=== PATIENT | female | born 1935 | race Caucasian/White ===

== ENCOUNTER 2018-01-06 12:36 | Inpatient (IN) | payer MEDICARE, BC ==
[~2018-01-06] VITALS: Ht 154.9 cm; Wt 51.7 kg
--- NOTE | 2018-01-06 12:45 | NUR ---
[facility] PRIVATE EMS FROM [facility], C/O INCREASED PARANOIA AND AGGRESSIVE X 2 DAYS. A/OX 2, BREATHING EVEN AND UNLABORED. NO SOB, NAD, VITALS STABLE. SAFETY AND COMFORT MEASURES IN PLACE. AWAITING MD ORDERS.
[2018-01-06 12:52] LABS: BASOPHILS % (AUTO) 0.3 % (0.0-2.0); EOSINOPHILS % (AUTO) 0.7 % (0.0-6.0); HEMATOCRIT 38 % (33-45); HEMOGLOBIN 12.8 g/dL (11.5-14.8); LYMPHOCYTES # (AUTO) 0.7 /CMM (0.8-4.8); LYMPHOCYTES % (AUTO) 7.3 % (20.0-44.0); MEAN CORPUSCULAR HGB CONC 34 g/dl (31.0-36.0); MEAN CORPUSCULAR VOLUME 94 fL (82-100); MONOCYTES # (AUTO) 0.7 /CMM (0.1-1.30); MONOCYTES % (AUTO) 7.6 % (2.0-12.0); NEUTROPHILS # (AUTO) 7.8 /CMM (1.8-8.9); NEUTROPHILS % (AUTO) 84.1 % (43.0-81.0); PLATELET COUNT (AUTO) 235 /CMM (150-450); RDW COEFFICIENT OF VARIATION 11.9 (11.5-15.0); RED BLOOD CELL COUNT(AUTO) 4.06 MIL/uL (4.0-5.2); WHITE BLOOD COUNT (AUTO) 9.3 K/uL (4.3-11.0)
[2018-01-06 13:05] LABS: ALANINE AMINOTRANSFERASE 47 U/L (12-78); ALBUMIN 3.7 g/dL (3.4-5.0); ALCOHOL, BLOOD < 3 mg/dL (0-0); ALKALINE PHOSPHATASE 75 U/L (46-116); ASPARTATE AMINOTRANSFERASE 28 U/L (15-37); BILIRUBIN,DIRECT 0.1 mg/dL (0.0-0.2); BILIRUBIN,TOTAL 0.6 mg/dL (0.2-1.0); CALCIUM, SERUM 9.3 mg/dL (8.5-10.1); CHLORIDE 91 mmol/L (98-107); CREATININE 0.7 mg/dL (0.6-1.3); POTASSIUM 4.8 mmol/L (3.5-5.1); SODIUM SERUM 129 mmol/L (136-145); TOTAL PROTEIN, SERUM 6.7 g/dL (6.4-8.2); UREA NITROGEN, BLOOD 21 mg/dL (7-18)
--- NOTE | 2018-01-06 13:05 | NUR ---
PATIENT TAKEN TO CT VIA STRETCHER.
[2018-01-06 13:14] LABS: CARBON DIOXIDE 42 mmol/L (21-32)
[2018-01-06 13:15] LABS: GLUCOSE 495 mg/dL (74-106); SALICYLATE 0.8 mg/dL (2.8-20.0)
[2018-01-06 13:16] LABS: ACETAMINOPHEN 0 ug/ml (10-30)
--- NOTE | 2018-01-06 13:20 | NUR ---
PATIENT RETURNED FROM CT IN STABLE CONDITION.
--- NOTE | 2018-01-06 13:42 | NUR ---
CALLED NURSING SUP. FOR MS BED
[2018-01-06 14:05] LABS: CALCIUM, SERUM 9.3 mg/dL (8.5-10.1); CHLORIDE 92 mmol/L (98-107); CREATININE 0.8 mg/dL (0.6-1.3); POTASSIUM 4.6 mmol/L (3.5-5.1); SODIUM SERUM 132 mmol/L (136-145); UREA NITROGEN, BLOOD 21 mg/dL (7-18)
[2018-01-06 14:08] LABS: CARBON DIOXIDE 44 mmol/L (21-32)
[2018-01-06 14:09] LABS: GLUCOSE 442 mg/dL (74-106)
[2018-01-06] MEDS ORDERED: INSULIN REGULAR, HUMAN 100 UNIT/ML 10 ML VIAL ONE (14:11)
[2018-01-06 14:19] LABS: ABG BASE EXCESS 8.2 mmol/L; ABG OXYGEN SATURATION 95.7 % (92.0-98.5); ABG PCO2 67.1 mmHg (35.0-45.0); ABG PO2 88.6 mmHg (75.0-100.0); AaDO2 97.5 mmHg; COHb 0.5 % (0.5-1.5); MetHb 0.6 % (0.0-1.5); O2Hb 94.6 % (94.0-97.0); SITE, ABG Left Brachial; VENT MODE, BG NASAL CANNULA
[2018-01-06] MEDS ORDERED: DOCU100C36 PO (14:20)
[2018-01-06] MEDS ORDERED: OLAN2.5T3 PO ×2 (14:20)
[2018-01-06] MEDS ORDERED: ACET325T53 PO (14:20)
[2018-01-06] MEDS ORDERED: BLOO-668 SQ (14:20)
[2018-01-06] MEDS ORDERED: LORA-259 PO (14:20)
[2018-01-06] MEDS ORDERED: IPRA3AMP23 IH (14:20)
[2018-01-06] MEDS ORDERED: INSU100V27 SQ (14:20)
[2018-01-06] MEDS ORDERED: INSU100V7 SQ (14:20)
[2018-01-06] MEDS ORDERED: INSULIN REGULAR, HUMAN 100 UNIT/ML 10 ML VIAL SQ ONE (14:30)
--- NOTE | 2018-01-06 14:42 | NUR ---
CALLED ART FOR PSYCH EVAL
[2018-01-06] MEDS ORDERED: IV NS 0.9% 1,000 ML BAG IV ONE ×2 (15:00→15:30)
[2018-01-06] MEDS ORDERED: FUROSEMIDE 40 MG/4 ML VIAL IV ONE (15:00)
--- NOTE | 2018-01-06 15:05 | NUR ---
TELE 117-1 FOR UNCONTROLLED DIABETES AND HYPOXIA, ADMITTING
[2018-01-06] MEDS ORDERED: FUROSEMIDE 40 MG/4 ML VIAL ONE (15:12)
[2018-01-06] MEDS ORDERED: IPRATROPIUM NEB FS 0.5 MG/2.5 ML AMPUL.NEB NEB ONE (15:30)
[2018-01-06] MEDS ORDERED: ALBUTEROL FS 2.5 MG/0.5 ML VIAL.NEB NEB ONE (15:30)
--- NOTE | 2018-01-06 15:38 | NUR ---
REPORT GIVEN TO PIA GARLAND FOR MILIND UPON ADMISSION
[2018-01-06] MEDS ORDERED: IPRATROPIUM NEB FS 0.5 MG/2.5 ML AMPUL.NEB ONE (15:39)
[2018-01-06] MEDS ORDERED: ALBUTEROL FS 2.5 MG/3 ML VIAL.NEB ONE (15:39)
[2018-01-06] MEDS ORDERED: LORAZEPAM 1 MG TABLET PO PRN (16:00)
[2018-01-06] MEDS ORDERED: MAG HYDROX/AL HYDROX/SIMETH 30 ML UDC PO PRN (16:00)
[2018-01-06] MEDS ORDERED: OLANZAPINE 2.5 MG TABLET PO PRN (16:00)
[2018-01-06] MEDS ORDERED: Medication Not On Formulary EA (Ipratropium/Albuterol Sulfate (Duoneb 2.5-0.5 Mg/3 Ml So IH PRN (16:00)
[2018-01-06] MEDS ORDERED: HYDROCODONE/APAP 5/325MG 1 EACH TABLET PO PRN (16:00)
[2018-01-06] MEDS ORDERED: ONDANSETRON HCL/PF 4 MG/2 ML VIAL IVP PRN (16:00)
[2018-01-06] MEDS ORDERED: Z GUARD REMEDY 2 OZ OINT TP PRN (16:00)
[2018-01-06] MEDS ORDERED: ZOLPIDEM TARTRATE 5 MG TABLET PO PRN (16:00)
[2018-01-06] MEDS ORDERED: *INSULIN REGULAR(HUMULIN R)HUM 100 UNIT/ML VIAL SQ PRN ×2 (16:00)
[2018-01-06] MEDS ORDERED: ACETAMINOPHEN 325 MG TABLET PO PRN ×3 (16:00)
[2018-01-06] MEDS ORDERED: INSULIN REGULAR, HUMAN 100 UNIT/ML 3 ML VIAL SQ PRN (16:00)
[2018-01-06] MEDS ORDERED: DEXTROSE 50%-WATER 50 ML DISP.SYRIN IV PRN ×2 (16:00)
[2018-01-06] MEDS ORDERED: MAGNESIUM HYDROXIDE 30 ML UDC PO PRN (16:00)
[2018-01-06] MEDS ORDERED: DOCUSATE SODIUM 100 MG CAPSULE PO PRN (16:00)
--- NOTE | 2018-01-06 16:20 | NUR ---
PATIENT TRANSPORTED TO [facility] VIA ACLS PROTOCOL. RNPIA TO PROVIDE MILIND.
[2018-01-06] MEDS: IPRATROPIUM NEB FS 0.5 MG/2.5 ML AMPUL.NEB NEB SCH ×3 (16:30→22:49)
[2018-01-06] MEDS: ALBUTEROL FS 2.5 MG/0.5 ML VIAL.NEB NEB SCH ×3 (16:30→22:49)
[2018-01-06 16:36] VITALS: BP 144/75
[2018-01-06 16:40] VITALS: BP 149/75
[2018-01-06] MEDS ORDERED: BLOOD SUGAR DIAGNOSTIC 1 EACH STRIP IN SCH (17:30)
[2018-01-06] MEDS ORDERED: BLOOD SUGAR DIAGNOSTIC 1 EACH STRIP MC SCH (17:30)
[2018-01-06] MEDS: BLOOD SUGAR DIAGNOSTIC 1 EACH STRIP IN SCH ×2 (17:42→21:17)
[2018-01-06] MEDS: IV NS 0.9% 1,000 ML IV PRN (17:42)
--- NOTE | 2018-01-06 19:20 | NUR ---
FINANCIAL SERVICE PROFESSIONAL NOTE RECEIVED PATIENT RESTING COMFORTABLY IN BED, AOX3, SPEECH CLEAR, DENIES PAIN, ON TELE MONITOR SR, DIAPER IN PLACE, LAC #20G PATENT FLUSHING WELL, SITE CDI, NS AT 75ML/HR TOLERATING WELL. NO S/SX OF HYPER/HYPOGLYCEMIA, SAFETY MAINTAINED AT ALL TIMES, BED IN LOW LOCKED POSITION, CALL LIGHT WITHIN REACH, WILL CONTINUE TO MONITOR FOR ANY CHANGES IN CONDITION.
[2018-01-06 20:00] VITALS: BP 118/55
[2018-01-06 20:45] VITALS: BP 118/55
[2018-01-06] MEDS: INSULIN REGULAR, HUMAN 100 UNIT/ML 3 ML VIAL SQ PRN (21:23)
[2018-01-06] MEDS ORDERED: OLANZAPINE 2.5 MG TABLET PO SCH (22:00)
--- NOTE | 2018-01-06 23:41 | NUR ---
PUBLICATION EDITOR NOTE EXTENSIVE TEACHINGS ON MEDICATION ZYPREXA AND ITS USE/ BENEFITS, PATIENT CONTINUES TO REFUSE TO TAKE MEDICATION.
[2018-01-07] VITALS: BP 115/47
--- NOTE | 2018-01-07 02:30 | NUR ---
CARPENTER ROUGH NOTE PATIENT AGREED TO TAKE ZYPREXA TABLET ORDERED
[2018-01-07] MEDS: ALBUTEROL FS 2.5 MG/0.5 ML VIAL.NEB NEB SCH ×6 (03:27→23:30)
[2018-01-07] MEDS: IPRATROPIUM NEB FS 0.5 MG/2.5 ML AMPUL.NEB NEB SCH ×6 (03:27→23:30)
[2018-01-07 04:00] VITALS: BP 104/98
[2018-01-07] MEDS: IV NS 0.9% 1,000 ML IV PRN ×2 (05:32→19:08)
--- NOTE | 2018-01-07 07:00 | NUR ---
CLEARANCE CUTTER OPENING NOTE RECEIVED PATIENT RESTING COMFORTABLY IN BED, AOX3, SPEECH CLEAR, DENIES PAIN, ON TELE MONITOR SR 92, IV LAC #20G PATENT FLUSHING WELL, SITE CDI, NS AT 75ML/HR TOLERATING WELL. SAFETY MAINTAINED, BED IN LOW LOCKED POSITION, CALL LIGHT WITHIN REACH,SRX3. WILL CONTINUE TO MONITOR.
[2018-01-07] MEDS: BLOOD SUGAR DIAGNOSTIC 1 EACH STRIP IN SCH ×4 (07:26→21:50)
[2018-01-07] MEDS: INSULIN REGULAR, HUMAN 100 UNIT/ML 3 ML VIAL SQ PRN ×2 (07:37→11:48)
[2018-01-07 08:00] VITALS: BP 140/72
--- NOTE | 2018-01-07 09:00 | NUR ---
CNC MILLING MACHINIST NOTES SEEN BY WITH PLAN TO TRANSFER TO PSYCH UNIT, AFTER THE PSYCH CONSULT IF ITS OK WITH PSYCHIATRIST.
[2018-01-07 09:50] LABS: BASOPHILS % (AUTO) 0.2 % (0.0-2.0); EOSINOPHILS % (AUTO) 2.7 % (0.0-6.0); HEMATOCRIT 37 % (33-45); HEMOGLOBIN 12.3 g/dL (11.5-14.8); LYMPHOCYTES # (AUTO) 1.2 /CMM (0.8-4.8); MEAN CORPUSCULAR HGB CONC 34 g/dl (31.0-36.0); MEAN CORPUSCULAR VOLUME 95 fL (82-100); MONOCYTES # (AUTO) 0.6 /CMM (0.1-1.30); MONOCYTES % (AUTO) 7.9 % (2.0-12.0); NEUTROPHILS # (AUTO) 5.6 /CMM (1.8-8.9); NEUTROPHILS % (AUTO) 73.2 % (43.0-81.0); PLATELET COUNT (AUTO) 235 /CMM (150-450); RDW COEFFICIENT OF VARIATION 13.3 (11.5-15.0); RED BLOOD CELL COUNT(AUTO) 3.89 MIL/uL (4.0-5.2); WHITE BLOOD COUNT (AUTO) 7.6 K/uL (4.3-11.0)
[2018-01-07] MEDS: INSULIN GLARGINE, 100 UNIT/ML CARTRIDGE SQ SCH (10:00)
--- NOTE | 2018-01-07 10:00 | NUR ---
PROCESSING ASSOCIATE NOTES PATIENT REQUESTED TO HAVE SOCIAL SERVICE.ASKED ABUT HER CONCERN ,SHE WANT TO TALK TO ONLY SOCIAL SERVICE.SSD MADE AWARE.
[2018-01-07 10:15] LABS: ALANINE AMINOTRANSFERASE 44 U/L (12-78); ALBUMIN 3.4 g/dL (3.4-5.0); ALKALINE PHOSPHATASE 63 U/L (46-116); ASPARTATE AMINOTRANSFERASE 26 U/L (15-37); BILIRUBIN,TOTAL 0.4 mg/dL (0.2-1.0); CALCIUM, SERUM 8.7 mg/dL (8.5-10.1); CARBON DIOXIDE 38 mmol/L (21-32); CHLORIDE 97 mmol/L (98-107); CREATININE 0.6 mg/dL (0.6-1.3); GLUCOSE 215 mg/dL (74-106); MAGNESIUM 1.9 mg/dL (1.8-2.4); PHOSPHORUS 3.7 mg/dL (2.5-4.9); POTASSIUM 3.3 mmol/L (3.5-5.1); SODIUM SERUM 136 mmol/L (136-145); TOTAL PROTEIN, SERUM 6.1 g/dL (6.4-8.2); UREA NITROGEN, BLOOD 12 mg/dL (7-18)
[2018-01-07 10:50] LABS: CHOLESTEROL 133 mg/dL (<200); HDL CHOLESTEROL 49 mg/dL (40-60); LDL 71 mg/dL (0-99); THYROID STIMULATING HORMONE 2.231 uIU/mL (0.358-3.74); TRIGLYCERIDES 44 mg/dL (30-150)
--- NOTE | 2018-01-07 11:30 | NUR ---
PIGMENT GRINDER NOTES PATIENT IS ALERT ORIENTED WITH PERIODS OF CONFUSION,REPEATEDLY ASKING QUESTIONS THAT EXPLAINED PRIOR.SOCIAL SERVICE MET THE PATIENT ,SHE HAS CONCERN ABOUT HER CLOCK,REMOVE ONE ID BAND.TO KNOW WHO IS HER PRIMARY DOCTOR ANSWERED ALL THE QUESTIONS,ALL NEEDS MET.CONTINUE TO MONITOR
[2018-01-07 11:35] LABS: EOSINOPHILS % (MANUAL) 3 % (0-4); LYMPHOCYTES % (MANUAL) 16 % (16-48); MONOCYTES % (MANUAL) 9 % (0-11.0); NEUTROPHILS % (MANUAL) 72 (42-76)
--- NOTE | 2018-01-07 11:38 | NUR ---
HAULAGE ENGINE OPERATOR NOTES NOTED WITH BLOOD PRESSURE OF 158/92.DENIED CHEST PAIN. MADE AWARE.GOT NEW ORDER.ASKED ABOUT DVT PROPHYLAXIS.STARTED ON LOVENOX 30MG DAILY.
[2018-01-07] MEDS: ENOXAPARIN SODIUM 30 MG/0.3 ML DISP.SYRIN SQ SCH ×3 (11:46→20:56)
[2018-01-07] MEDS: AMLODIPINE BESYLATE 5 MG TABLET PO SCH (11:48)
[2018-01-07 12:00] VITALS: BP 158/72
--- NOTE | 2018-01-07 12:03 | NUR ---
JAVA ENTERPRISE ARCHITECT NOTES PATIENT REFUSED MEDICATION LOVENOX.EXPLAINED THE RISK AND BENEFIT.WILL FOLLOW UP.
--- NOTE | 2018-01-07 13:00 | NUR ---
RN NOTES PATIENT REFUSED LOVENOX.EXPLAINED RISK AND BENEFITS OFFERED X3
--- NOTE | 2018-01-07 13:20 | NUR ---
COMPUTER HELP DESK REPRESENTATIVE NOTES GOT CALL FROM [facility] THAT PATIENT COMPLAINTS OF THE MEDICATION GIVEN FOR BLOOD PRESSURE MEDICATION IS BURNED HER THROAT AND BREATHING TREATMENT BURNING .SHE C/O SOB.MADE AWARE THAT I WAS WITH THE PATIENT WHILE SHE IS THE PHONE AND AFTER GIVING MEDICATION,SHE IS COMFORTABLE.NO SOB NOTICED.WILL FOLLOW UP WITH THE DOCTOR FOR MEDICATION CHANGE IF ANY SIGNS AND SYMPTOMS OF ALLERGY NOTED.WENT TO THE PATIENT ROOM SHE IS LITTLE ANXIOUS AND OFFERED ANXIETY MEDICATION,SHE SAID SHE IS FINE.REFUSED PRN ATIVAN. CHECKED THE O2 SATURATION IS 92% WITH 2L OXYGEN.NO SOB NO DISTRESS NOTED.DENIED THE PAIN AND DISCOMFORT.CONTINUE TO MONITOR.CHARGE NURSE MADE AWARE.
[2018-01-07 16:00] VITALS: BP 120/52
--- NOTE | 2018-01-07 16:05 | NUR ---
IN STORE MARKETER NOTES NOTED WITH DISTENDED ABDOMEN.ABDOMEN IS BLOATED.OFFERED MAALOX BUT REFUSED TO TAKE IT. MADE AWARE.GOT NEW ORDER FOR KUB.
[2018-01-07] MEDS ORDERED: POTASSIUM CHLORIDE 20 MEQ TAB.PRT.SR PO SCH (16:30)
--- NOTE | 2018-01-07 16:59 | NUR ---
OCCUPATIONAL THERAPY SUPERVISOR NOTES PATIENT REFUSED POTASSIUM.EXPLAINED RISK AND BENEFITS.SHE WANT TO SEE THE LABS.LABS SEEN BY THE RESIDENT.STILL DON'T WANT TO TAKE MEDICATION.WILL OFFER LATER.
--- NOTE | 2018-01-07 19:00 | NUR ---
HVAC SHEET METAL INSTALLER SHIFT END NOTE PATIENT RESTING COMFORTABLY IN BED, AOX3,WITH PERIODS OF CONFUSION, SPEECH CLEAR, DENIES PAIN, ON TELE MONITOR SR 92, IV LAC #20G PATENT FLUSHING WELL, SITE CDI, NS AT 75ML/HR TOLERATING WELL. NO SOB NON DISTRESS NOTICED DURING THE SHIFT.SAFETY MAINTAINED, BED IN LOW LOCKED POSITION, CALL LIGHT WITHIN REACH,SRX3. WILL ENDORSE TO PM NURSE FOR MILIND.
[2018-01-07 20:00] VITALS: BP 136/62
[2018-01-07] MEDS: ARIPIPRAZOLE 5 MG TABLET PO SCH ×3 (21:50→22:30)
--- NOTE | 2018-01-07 22:02 | NUR ---
TRAIN STARTER NOTES PT REFUSED ABILIFY. EXPLAINED TO PT IMPORTANCE OF HER MEDICATIONS IN HER POC BUT PT STILL REFUSED. PT WANTS TO TALK TO MD FIRST. WILL CONTINUE TO MONITOR.
--- NOTE | 2018-01-07 22:30 | NUR ---
ENVELOPE FOLD OPERATOR NOTES PT DECIDED TO TAKE HER ABILIFY FOR TONIGHT. WILL CONTINUE TO MONITOR.
[2018-01-08] VITALS: BP 157/73
[2018-01-08] MEDS: IPRATROPIUM NEB FS 0.5 MG/2.5 ML AMPUL.NEB NEB SCH ×4 (03:30→11:11)
[2018-01-08] MEDS: ALBUTEROL FS 2.5 MG/0.5 ML VIAL.NEB NEB SCH ×4 (03:30→11:11)
[2018-01-08 04:00] VITALS: BP 130/70
[2018-01-08 04:31] VITALS: BP 130/70
--- NOTE | 2018-01-08 06:30 | NUR ---
CLAIM CLINICIAN NOTES AWAKE & RESPONSIVE. NOT IN ANY DISTRESS. NO SOB NOTED. DENIES ANY PAIN OR DISCOMFORT AT THIS TIME. ON TELE SR @ 79 WITH IV-HL PATENT & INTACT. AM CARE DONE. MONITORED ACCORDINGLY. CALL LIGHT WITHIN REACH. BED IN LOWEST POSITION. SR UP X 2 FOR SAFETY. WILL ENDORSE TO NEXT SHIFT.
--- NOTE | 2018-01-08 07:00 | NUR ---
TELE OPENING NOTE PATIENT RESTING COMFORTABLY IN BED, AOX3,WITH PERIODS OF CONFUSION, SPEECH CLEAR, DENIES PAIN, ON TELE MONITOR SIN[place] OF 103, IV LAC #20G PATENT FLUSHING WELL, SITE CDI, NS AT 75ML/HR TOLERATING WELL. NO SOB NON DISTRESS NOTICED DURING THE SHIFT.SAFETY MAINTAINED, BED IN LOW LOCKED POSITION, CALL LIGHT WITHIN REACH,SRX3. WILL CONTINUE TO MONITOR.
[2018-01-08 07:07] LABS: CALCIUM, SERUM 8.5 mg/dL (8.5-10.1); CHLORIDE 100 mmol/L (98-107); CREATININE 0.3 mg/dL (0.6-1.3); POTASSIUM 4.1 mmol/L (3.5-5.1); SODIUM SERUM 142 mmol/L (136-145); UREA NITROGEN, BLOOD 11 mg/dL (7-18)
[2018-01-08 07:20] LABS: CARBON DIOXIDE 41 mmol/L (21-32)
[2018-01-08] MEDS: BLOOD SUGAR DIAGNOSTIC 1 EACH STRIP IN SCH ×2 (07:30→12:19)
[2018-01-08 07:31] LABS: GLUCOSE 62 mg/dL (74-106)
--- NOTE | 2018-01-08 07:40 | NUR ---
OUTSOLE ROUNDER NOTES BLOOD SUGAR IS 63,ORANGE JUICE GIVEN AND PATIENT EATING THE BREAKFAST.NO SYMPTOMS NOTED.CONTINUE TO MONITOR
[2018-01-08 08:00] VITALS: BP 143/64
[2018-01-08] MEDS: INSULIN GLARGINE, 100 UNIT/ML CARTRIDGE SQ SCH (09:00)
[2018-01-08] MEDS: AMLODIPINE BESYLATE 5 MG TABLET PO SCH (09:00)
[2018-01-08] MEDS: ENOXAPARIN SODIUM 30 MG/0.3 ML DISP.SYRIN SQ SCH (09:00)
[2018-01-08] MEDS: IV NS 0.9% 1,000 ML IV PRN (09:45)
--- NOTE | 2018-01-08 10:00 | NUR ---
RN NOTES SEEN BY MADE AWARE ABOUT THE -PATIENT CONCERN.SHE WANT TO DISCONTINUE AMLODIPINE AND TO START ON LASIX.STARTED ON LASIX.D/C AMLODIPINE.C/O BURNING SENSATION UPON URINATION.WAITING FOR URINE CULTURE.CALL MADE TO SON PER REQUEST,LEFT MESSAGE.NOTIFIED ABOUT ABNORMAL LAB OF CO2,SHE IS CHRONIC COPD PATIENT.MADE AWARE ABOUT LOW BLOOD SUGAR OF 63.CHANGED LANTUS FROM 10 UNIT TO 8 UNIT.NOTIFIED ABOUT THE REQUEST FOR NEXIUM PER DOCTOR SHE DON'T NEED IT.GOT ORDER FOR PT EVAL .POSSIBLE DISCHARGE TO [facility].
[2018-01-08 10:22] LABS: APPEARANCE,URINE SL CLOUDY (CLEAR); BILIRUBIN,URINE NEGATIVE (NEGATIVE); BLOOD, URINE TRACE Ery/uL (NEGATIVE); COLOR,URINE YELLOW (YELLOW); KETONES,URINE NEGATIVE (NEGATIVE); LEUKOCYTE ESTERASE ,URINE 3+ (NEGATIVE); NITRITE, URINE NEGATIVE (NEGATIVE); PROTEIN,URINE NEGATIVE (NEGATIVE); UGLUCOSE NEGATIVE (NEGATIVE); UROBILINOGEN,URINE 0.2 EU/dL (0.2)
[2018-01-08 10:31] LABS: BACTERIA,URINE Few /HPF (None Seen); SQUAMOUS EPITHELIAL CELL,UR Few /HPF (None Seen)
[2018-01-08] MEDS: INSULIN REGULAR, HUMAN 100 UNIT/ML 3 ML VIAL SQ PRN (12:18)
--- NOTE | 2018-01-08 13:00 | NUR ---
RN NOTES SEEN BY CRISIS TEAM.PATIENT IS ON HOLD FOR 72 HRS.
--- NOTE | 2018-01-08 13:15 | NUR ---
RN NOTES GOT DISCHARGE ORDER,REPORT GIVEN TO CARLYN GARLAND IN [facility].INFORMED THAT PATIENT IS ON HOLD FOR 72 HRS STARTS FROM TODAY.ON 2L O2 CONTINUOUS.
--- NOTE | 2018-01-08 14:45 | NUR ---
TRANSFER NOTE PATIENT GOT TRANSFERRED TO [facility] IN STABLE CONDITION.NO SOB NO DISTRESS NOTED.ON O2 VIA NA.ALL BELONGINGS TAKEN .PATIENT REFUSED TO SIGN BELONGING LIST AND TO TAKE PICTURE. REPORT GIVEN MARIELLE ALCOCER RN.
[2018-01-08] MEDS ORDERED: MAGN400O6 PO (15:14)
[2018-01-08] MEDS ORDERED: ZOLP5TAB8 PO (15:14)
[2018-01-08] MEDS ORDERED: AMLO5TAB7 PO (15:14)
[2018-01-08] MEDS ORDERED: MAG30ORA PO (15:14)
[2018-01-08] MEDS ORDERED: HYDR-552 PO (15:14)
[2018-01-08] MEDS ORDERED: ENOX30DI SQ (15:14)
[2018-01-08] MEDS ORDERED: INSU100V3 SQ (15:14)
[2018-01-08] MEDS ORDERED: ALLA266C2 TP (15:14)
[2018-01-08] MEDS ORDERED: ARIP5TAB10 PO (15:14)
[2018-01-08] MEDS ORDERED: ARIPIPRAZOLE 5 MG TABLET PO SCH (22:00)
[2018-01-09] MEDS ORDERED: FUROSEMIDE 40 MG TABLET PO SCH (09:00)
[2018-01-09] MEDS ORDERED: INSULIN GLARGINE, 100 UNIT/ML CARTRIDGE SQ SCH (09:00)
== END 2018-01-08 14:31 | DRG 189 ==
LOC: ER 12:50 → TELE1 15:33 → MEDSG1 01-08 10:04
PROVIDERS: ADMIT Internal Medicine; ATTEND Internal Medicine
DX: J96.21 Acute and chronic respiratory failure with hypoxia (principal); G93.41 Metabolic encephalopathy; E87.3 Alkalosis; E11.65 Type 2 diabetes mellitus with hyperglycemia; I11.0 Hypertensive heart disease with heart failure; I50.9 Heart failure, unspecified; F29 Unspecified psychosis not due to a substance or known physiological condition; F41.9 Anxiety disorder, unspecified; Z88.5 Allergy status to narcotic agent; Z88.2 Allergy status to sulfonamides; Z88.8 Allergy status to other drugs, medicaments and biological substances; Z79.4 Long term (current) use of insulin; Z79.899 Other long term (current) drug therapy; I25.10 Atherosclerotic heart disease of native coronary artery without angina pectoris; F25.0 Schizoaffective disorder, bipolar type; J44.9 Chronic obstructive pulmonary disease, unspecified
CPT/HCPCS: 36415; 36600; 70450-TC; 71045-TC; 74018; 80048-TC; 80053-TC; 80061-TC; 80076-TC; 80305; 81000-TC; 82962-TC; 83690-TC; 83735-TC; 83880; 84100-TC; 84443-TC; 84484-TC; 85025-TC; 87081-TC; 87086-TC; 87186-TC; A4606; G0480; J1650; J1815; J1940; J7030; Z7610

== ENCOUNTER 2018-01-08 15:00 | Inpatient (IN) | payer MEDICARE ==
[~2018-01-08] VITALS: Ht 160 cm; Wt 40.8 kg
[~2018-01-08 15:00] MED LIST: ACET325T53 PO; BLOO-668 SQ; DOCU100C36 PO; INSU100V27 SQ; INSU100V7 SQ; IPRA3AMP23 IH; LORA-259 PO; OLAN2.5T3 PO
[2018-01-08] MEDS ORDERED: ARIP5TAB10 PO (15:14)
[2018-01-08] MEDS ORDERED: AMLO5TAB7 PO (15:14)
[2018-01-08] MEDS ORDERED: MAG30ORA PO (15:14)
[2018-01-08] MEDS ORDERED: ZOLP5TAB8 PO (15:14)
[2018-01-08] MEDS ORDERED: INSU100V3 SQ (15:14)
[2018-01-08] MEDS ORDERED: ENOX30DI SQ (15:14)
[2018-01-08] MEDS ORDERED: MAGN400O6 PO (15:14)
[2018-01-08] MEDS ORDERED: HYDR-552 PO (15:14)
[2018-01-08] MEDS ORDERED: ALLA266C2 TP (15:14)
[2018-01-08] MEDS ORDERED: MAG HYDROX/AL HYDROX/SIMETH 30 ML UDC PO PRN (15:30)
[2018-01-08] MEDS ORDERED: MAGNESIUM HYDROXIDE 30 ML UDC PO PRN (15:30)
[2018-01-08] MEDS ORDERED: ACETAMINOPHEN 325 MG TABLET PO PRN (15:30)
[2018-01-08 15:45] VITALS: BP 150/74
[2018-01-08] MEDS ORDERED: Z GUARD REMEDY 2 OZ OINT TP PRN ×2 (16:00→17:30)
--- NOTE | 2018-01-08 17:11 | NUR ---
ADMITTED AN 82 YEARS OLD FEMALE ON 5150 FOR GD. PT. WAS AGITATED, NON COMPLIANT, IMPAIRED JUDGEMENT, POOR INSIGHT, PARANOID, SUSPICIOUS AND DEPRESSED. PT. CAME FROM [facility] AND ARRIVED IN THE UNIT VIA A WHEELCHAIR AND WHEELED BY [facility] STAFFS. PT. IS WITH POOR HYGIENE, ALERT/ ORIENTED X3 AND WITH OXYGEN AT 2/ MIN. V/S TAKEN, CONTRABAND DONE AND SKIN CHECK AND SKIN PICTURES TAKEN, MRSA TAKEN AND PT. REFUSED FOR SIGNING THE ADMISSION PAPERS. DR. GRIMES MADE AWARE OF THE ADMISSION AND GAVE ORDERS. FREDO RUBIN NOTIFIED AND WITH ORDERS AND WILL CONTINUE TO MONITOR FOR SAFETY.
[2018-01-08] MEDS ORDERED: HYDROCODONE/APAP 5/325MG 1 EACH TABLET PO PRN (17:30)
[2018-01-08] MEDS ORDERED: DEXTROSE 50%-WATER 50 ML DISP.SYRIN IV PRN (17:30)
[2018-01-08] MEDS ORDERED: DOCUSATE SODIUM 100 MG CAPSULE PO PRN (17:30)
[2018-01-08] MEDS: BLOOD SUGAR DIAGNOSTIC 1 EACH STRIP IN SCH ×2 (17:45→21:18)
[2018-01-08] MEDS: INSULIN REGULAR, HUMAN 100 UNIT/ML 3 ML VIAL SQ PRN (17:48)
[2018-01-08 20:00] VITALS: BP 143/77
[2018-01-08] MEDS: Z GUARD REMEDY 2 OZ OINT TP SCH (21:18)
--- NOTE | 2018-01-08 21:20 | NUR ---
ACCUCHECK, 294 MG/DL, REFUSED INSULIN COVERAGE OF 6 UNITS REGULAR I., OFFERED 3X, STILL REFUSED. PATIENT STATED, " I TOOK DINNER, IF I TAKE THAT, IT WILL BE LOW, NO." OFFERED HS SNACKS, PATIENT ALSO REFUSED.
[2018-01-08] MEDS ORDERED: ARIPIPRAZOLE 2 MG TABLET PO SCH (22:00)
[2018-01-09 07:10] LABS: APPEARANCE,URINE CLEAR (CLEAR); BILIRUBIN,URINE NEGATIVE (NEGATIVE); BLOOD, URINE NEGATIVE Ery/uL (NEGATIVE); COLOR,URINE YELLOW (YELLOW); KETONES,URINE NEGATIVE (NEGATIVE); LEUKOCYTE ESTERASE ,URINE 1+ (NEGATIVE); NITRITE, URINE NEGATIVE (NEGATIVE); PH,URINE 6.5 (5.0-8.0); PROTEIN,URINE NEGATIVE (NEGATIVE); UGLUCOSE TRACE mg/dL (NEGATIVE); UROBILINOGEN,URINE 0.2 EU/dL (0.2)
[2018-01-09 07:15] LABS: BACTERIA,URINE Few /HPF (None Seen); RBC,URINE 0-2 /HPF (0-2)
[2018-01-09 07:16] LABS: SQUAMOUS EPITHELIAL CELL,UR 0-2 /HPF (None Seen)
[2018-01-09] MEDS: BLOOD SUGAR DIAGNOSTIC 1 EACH STRIP IN SCH ×4 (07:56→21:06)
[2018-01-09 08:00] VITALS: BP 147/71
[2018-01-09] MEDS: INSULIN REGULAR, HUMAN 100 UNIT/ML 3 ML VIAL SQ PRN ×2 (08:05→12:28)
[2018-01-09] MEDS: INSULIN GLARGINE, 100 UNIT/ML CARTRIDGE SQ SCH (08:11)
--- NOTE | 2018-01-09 08:12 | NUR ---
GPS/RN PT REFUSED INSULIN GLARGINE. AGREED TO TAKE REGULAR INSULIN 8UNITS SQ. PT IS SUSPICIOUS AND REQUESTED INSULIN TO BE DRAWN IN FRONT OF HER. CHARGE NURSE SAAD GARLAND WAS PRESENT AT THE BEDSIDE AND TRIED TO CONVINCE HER TO TAKE SCHEDULED MEDS WELL.
[2018-01-09] MEDS: Z GUARD REMEDY 2 OZ OINT TP SCH ×2 (09:15→21:06)
[2018-01-09] MEDS: AMLODIPINE BESYLATE 5 MG TABLET PO SCH (09:29)
[2018-01-09] MEDS: ENOXAPARIN SODIUM 30 MG/0.3 ML DISP.SYRIN SQ SCH (09:30)
--- NOTE | 2018-01-09 10:19 | NUR ---
INITIAL ECHO FINDINGS SHOWED EF 68%~ WITH SEVERE PULMONARY HTN 73mmHg. INFORMED NURSE OF RESULTS.
[2018-01-09] MEDS: CEPHALEXIN MONOHYDRATE 500 MG CAPSULE PO SCH ×2 (12:15→21:05)
[2018-01-09 16:08] VITALS: BP 121/66
[2018-01-09] MEDS: DOCUSATE SODIUM 100 MG CAPSULE PO SCH (17:31)
[2018-01-09] MEDS: ARIPIPRAZOLE 2 MG TABLET PO SCH (17:31)
[2018-01-09 20:00] VITALS: BP 140/68
[2018-01-09] MEDS: *INSULIN REGULAR(HUMULIN R)HUM 100 UNIT/ML VIAL SQ PRN (21:10)
--- NOTE | 2018-01-09 21:11 | NUR ---
ACCUCHECK 188 MG/DL, 3 UNITS REGULAR INSULIN SC ADMINISTERED. HAD CRANBERRY JUICE AND EGG SANDWICH FOR SNACKS.
--- NOTE | 2018-01-10 06:50 | NUR ---
PATIENT REFUSED TO BE CLEANED AND CHANGE HER DIAPER, GAS METER INSTALLER REPORTED THAT PATIENT IS WET. PATIENT REQUESTED TO BE CHANGED AFTER BREAKFAST TODAY. CHARGE NURSE MADE AWARE.
[2018-01-10 07:14] LABS: ALANINE AMINOTRANSFERASE 33 U/L (12-78); ALKALINE PHOSPHATASE 65 U/L (46-116); ASPARTATE AMINOTRANSFERASE 26 U/L (15-37); BILIRUBIN,TOTAL 0.5 mg/dL (0.2-1.0); CALCIUM, SERUM 8.8 mg/dL (8.5-10.1); CHLORIDE 96 mmol/L (98-107); CREATININE 0.3 mg/dL (0.6-1.3); GLUCOSE 154 mg/dL (74-106); POTASSIUM 4.3 mmol/L (3.5-5.1); SODIUM SERUM 136 mmol/L (136-145); TOTAL PROTEIN, SERUM 5.9 g/dL (6.4-8.2); UREA NITROGEN, BLOOD 9 mg/dL (7-18)
--- NOTE | 2018-01-10 07:29 | NUR ---
GPS RN NOTES PATIENT RECEIVED RESTING INSIDE ROOM. AWAKE, ALERT AND ORIENTED. VERBALLY RESPONSIVE AND RESPONDS TO VERBAL AND TACTILE STIMULI. BREATHING EVEN AND UNLABORED. O2 AT 2L/MIN VIA NC. NO SOB OR ACUTE DISTRESS NOTED. PATIENT DENIES ANY PAIN OR DISCOMFORT. NO CHANGES IN LOC NOTED. SITTER ON BEDSIDE. WILL CONTINUE TO MONITOR.
[2018-01-10 07:38] LABS: CARBON DIOXIDE 43 mmol/L (21-32)
[2018-01-10] MEDS: BLOOD SUGAR DIAGNOSTIC 1 EACH STRIP IN SCH ×4 (07:40→22:00)
[2018-01-10] MEDS: INSULIN REGULAR, HUMAN 100 UNIT/ML 3 ML VIAL SQ PRN ×2 (07:42→12:17)
[2018-01-10 07:57] LABS: CHOLESTEROL 134 mg/dL (<200); HDL CHOLESTEROL 48 mg/dL (40-60); LDL 76 mg/dL (0-99); TRIGLYCERIDES 71 mg/dL (30-150)
[2018-01-10 08:00] VITALS: BP 164/81
[2018-01-10] MEDS: INSULIN GLARGINE, 100 UNIT/ML CARTRIDGE SQ SCH (09:00)
[2018-01-10] MEDS: CEPHALEXIN MONOHYDRATE 500 MG CAPSULE PO SCH ×2 (09:08→20:45)
[2018-01-10] MEDS: AMLODIPINE BESYLATE 5 MG TABLET PO SCH (09:08)
[2018-01-10] MEDS: DOCUSATE SODIUM 100 MG CAPSULE PO SCH ×2 (09:08→16:31)
[2018-01-10] MEDS: ENOXAPARIN SODIUM 30 MG/0.3 ML DISP.SYRIN SQ SCH (09:10)
[2018-01-10] MEDS: Z GUARD REMEDY 2 OZ OINT TP SCH ×2 (09:10→20:47)
[2018-01-10] MEDS: ARIPIPRAZOLE 2 MG TABLET PO SCH (16:31)
[2018-01-10 20:04] VITALS: BP 149/81
--- NOTE | 2018-01-10 22:00 | NUR ---
PATIENT REFUSED ACCUCHECK, ATTEMPTED 3X, STILL REFUSED, AGITATED, STATED, "LEAVE ME ALONE." CHARGE NURSE MADE AWARE.
[2018-01-11 08:00] VITALS: BP 150/78
[2018-01-11] MEDS: BLOOD SUGAR DIAGNOSTIC 1 EACH STRIP IN SCH ×4 (08:54→22:16)
[2018-01-11] MEDS: DOCUSATE SODIUM 100 MG CAPSULE PO SCH ×2 (08:54→16:37)
[2018-01-11] MEDS: CEPHALEXIN MONOHYDRATE 500 MG CAPSULE PO SCH ×2 (08:54→20:43)
[2018-01-11] MEDS: AMLODIPINE BESYLATE 5 MG TABLET PO SCH (08:55)
[2018-01-11] MEDS: ENOXAPARIN SODIUM 30 MG/0.3 ML DISP.SYRIN SQ SCH (08:56)
[2018-01-11] MEDS: INSULIN REGULAR, HUMAN 100 UNIT/ML 3 ML VIAL SQ PRN ×3 (08:57→17:36)
[2018-01-11] MEDS: INSULIN GLARGINE, 100 UNIT/ML CARTRIDGE SQ SCH (08:57)
--- NOTE | 2018-01-11 08:57 | NUR ---
[id number]: BLOOD SUGAR IS 173 MG/DL AND GAVE 4 UNITS OF REGULAR INSULIN.
[2018-01-11] MEDS: Z GUARD REMEDY 2 OZ OINT TP SCH ×2 (09:13→20:44)
--- NOTE | 2018-01-11 11:16 | NUR ---
ISI-TZ-QMACK: GAVE MILK OF MAGNESIA 30 ML PO UPON PT REQUEST AND WILL CONTINUE TO MONITOR FOR EFFECTIVENESS OF MEDICATION
--- NOTE | 2018-01-11 11:29 | NUR ---
WOUND CARE CONSULT: PT NOT SEEN YET FOR SKIN ASSESSMENT DUE TO PT OFF UNIT AT THIS TIME. PT HAS SACRAL WOUND WITHOUT DRAINAGE PER NURSING DOCUMENTATION, PRESENT ON ADMISSION. RECOMMENDATIONS MADE BASED ON NURSING DOCUMENTATION. ALL SKIN PROTECTION RECOMMENDATIONS DISCUSSED WITH NURSING STAFF. WILL SEE PT PT CONDITION PERMITS. CURRENT LORI SCORE IS 17. PT ON OXYGEN CONTINUOUSLY. MD IN AGREEMENT WITH PLAN OF CARE.
--- NOTE | 2018-01-11 12:47 | NUR ---
CUP-GB-[id number]: BLOOD SUGAR IS 264 MG/DL AND 12 UNITS OF REGULAR INSULIN
--- NOTE | 2018-01-11 15:47 | NUR ---
Initial Discharge Plan: Pts address on face sheet is [address] [place] [address] and telephone # is . However, per Leila, Staff from [facility] pt is residing at their facility for 2 dys. Per Leila she spoke to Uday from [facility] who agreed to accept pt once she is ready to discharge. During assessment, pt reported that she wanted to discharge back home to her once she is stable. SW will follow up to ensure pt is safely and adequately discharged.
[2018-01-11 16:00] VITALS: BP 134/63
[2018-01-11] MEDS: ARIPIPRAZOLE 2 MG TABLET PO SCH (16:37)
[2018-01-11] MEDS ORDERED: BISACODYL SUPP (10 MG) 10 MG/SUPP.RECT SUPP.RECT RC ONE (17:00)
--- NOTE | 2018-01-11 17:36 | NUR ---
UKE-NF-[id number]: BLOOD SUGAR IS 158 MG/DL AND GAVE 2 UNITS OF REGULAR INSULIN
[2018-01-11] MEDS ORDERED: NA PHOS,M-B/NA PHOS,DI-BA 1 EA ENEMA RC ONE (18:00)
[2018-01-11 19:33] VITALS: BP 158/84
--- NOTE | 2018-01-11 20:05 | NUR ---
GPS RN NOTE: Fleet enema administered via rectum and effective with xtra large, brown, form, soft stool. Patient tolerated the procedure, no complication noted at this time. Will continue to monitor h30gumn for safety
[2018-01-11] MEDS: POLYETHYLENE GLYCOL 3350 17 GM POWD.PACK PO SCH (22:00)
--- NOTE | 2018-01-11 22:18 | NUR ---
gps rn note: Patient blood sugar = 251, refused coverage and wants to be checked at 11pm. No s/s of hypoglycemia and hyperglycemia, Will continue to monitor.
[2018-01-11] MEDS: *INSULIN REGULAR(HUMULIN R)HUM 100 UNIT/ML VIAL SQ PRN (23:53)
[2018-01-12] MEDS: BLOOD SUGAR DIAGNOSTIC 1 EACH STRIP IN SCH ×4 (07:30→21:39)
[2018-01-12 08:00] VITALS: BP 158/74
[2018-01-12] MEDS: INSULIN GLARGINE, 100 UNIT/ML CARTRIDGE SQ SCH (09:00)
--- NOTE | 2018-01-12 09:28 | NUR ---
WOUND CARE CONSULT: PT SEEN FOR SKIN ASSESSMENT. PT NOTED TO HAVE STAGE 2 ULCER TO SACRUM WITH SURROUNDING DEEP TISSUE INJURY (INTACT), PRESENT ON ADMISSION. PT IS EXTREMELY THIN AND BONY. RECOMMENDATIONS MADE FOR SKIN PROTECTION AND WOUND CARE. DISCUSSED WITH NURSING STAFF. FIRST STEP MATTRESS ORDERED. WILL SEE PRN. DIETARY CONSULT IN PLACE. PT ON CONTINUOUS OXYGEN. MD IN AGREEMENT WITH PLAN OF CARE. Addendum: 01/12/18 at 0930 by AIDE ROSAS WNDNU Amended: Links added.
[2018-01-12] MEDS ORDERED: HYDROGEL DRESSING 90 GM TUBE TP PRN (09:30)
[2018-01-12] MEDS: CEPHALEXIN MONOHYDRATE 500 MG CAPSULE PO SCH (09:31)
[2018-01-12] MEDS: DOCUSATE SODIUM 100 MG CAPSULE PO SCH ×2 (09:32→17:00)
[2018-01-12] MEDS: AMLODIPINE BESYLATE 5 MG TABLET PO SCH (09:32)
[2018-01-12] MEDS: ENOXAPARIN SODIUM 30 MG/0.3 ML DISP.SYRIN SQ SCH (09:35)
[2018-01-12] MEDS: Z GUARD REMEDY 2 OZ OINT TP SCH ×2 (09:37→21:40)
[2018-01-12] MEDS: HYDROGEL DRESSING 90 GM TUBE TP SCH (10:52)
--- NOTE | 2018-01-12 11:00 | NUR ---
[id number]: NOTIFIED DR. MUSTAFA ABOUT PT'S EKG ON 01/11/18 AND TROPONIN LEVEL ON 01/12/18.
--- NOTE | 2018-01-12 12:00 | NUR ---
APZ-DU-[id number]: NOTIFIED DR. MUSTAFA ABOUT PT REFUSING ACCUCHECK FOR BREAKFAST AND LUNCH. PT REFUSED BLOOD WORK FOR TODAY.
--- NOTE | 2018-01-12 14:00 | NUR ---
IPN-HI-BIPFM: NOTIFIED DR. MUSTAFA ABOUT PT DECREASING O2 SATURATION AND NO NEW ORDERS GIVEN AT THIS TIME
[2018-01-12 16:00] VITALS: BP 125/60
[2018-01-12] MEDS: ARIPIPRAZOLE 2 MG TABLET PO SCH (17:00)
--- NOTE | 2018-01-12 19:27 | NUR ---
GPS RN OPENING NOTES PATIENT OBSERVED SCREAMING AND REFUSE TO HAVE CARE AT THIS TIME, MONITORING AND WITH SITTER DUE TO REQUIRING ASSISTANCE WITH NEEDS AND DESATURATION WHEN PATIENT ATTEMPS TO STAND . NEED CONSTANT OBSERVATION AND ATTENTION FOR SAFETY.
[2018-01-12 20:00] VITALS: BP 173/71
[2018-01-12] MEDS: NITROFURANTOIN/NITROFURAN MAC 100 MG CAPSULE PO SCH (20:03)
[2018-01-12] MEDS: POLYETHYLENE GLYCOL 3350 17 GM POWD.PACK PO SCH (21:39)
--- NOTE | 2018-01-12 22:13 | NUR ---
refusal to have accu check taken
[2018-01-13] MEDS: LORAZEPAM 0.5 MG TABLET PO PRN (00:09)
--- NOTE | 2018-01-13 06:11 | NUR ---
PATIENT ALLOWED BLOOD DRAW TO BE TAKEN
--- NOTE | 2018-01-13 06:13 | NUR ---
PATIENT ALLOWED WOUND TREATMENT/CARE IN AM
[2018-01-13] MEDS: BLOOD SUGAR DIAGNOSTIC 1 EACH STRIP IN SCH ×4 (07:30→22:31)
[2018-01-13 08:00] VITALS: BP 125/59
[2018-01-13] MEDS: GLUCERNA SHAKE 237 ML CAN PO SCH ×2 (08:00→17:00)
--- NOTE | 2018-01-13 08:13 | NUR ---
RN NOTE: PATIENT REFUSED ACCUCHECK
[2018-01-13] MEDS: INSULIN GLARGINE, 100 UNIT/ML CARTRIDGE SQ SCH (09:00)
[2018-01-13] MEDS: HYDROGEL DRESSING 90 GM TUBE TP SCH (09:00)
[2018-01-13] MEDS: Z GUARD REMEDY 2 OZ OINT TP SCH ×2 (09:00→21:47)
[2018-01-13] MEDS: ENOXAPARIN SODIUM 30 MG/0.3 ML DISP.SYRIN SQ SCH (09:00)
[2018-01-13] MEDS: ARIPIPRAZOLE 2 MG TABLET PO SCH ×2 (09:00→17:10)
[2018-01-13] MEDS: MULTIVITAMINS,THERAGRAN 1 UDTAB TABLET PO SCH (09:00)
[2018-01-13] MEDS: AMLODIPINE BESYLATE 5 MG TABLET PO SCH (09:00)
[2018-01-13] MEDS: DOCUSATE SODIUM 100 MG CAPSULE PO SCH ×2 (09:00→17:10)
[2018-01-13] MEDS: NITROFURANTOIN/NITROFURAN MAC 100 MG CAPSULE PO SCH ×2 (09:00→21:00)
[2018-01-13] MEDS ORDERED: LORAZEPAM INJ 2 MG/ML VIAL IM STA (09:01)
[2018-01-13] MEDS ORDERED: OLANZAPINE 10 MG VIAL IM STA (09:01)
--- NOTE | 2018-01-13 10:01 | NUR ---
rn note: PATIENT REFUSED MORNING MEDS X3. OFFERED AND REFUSED. PATIENT CONFUSED AND INCOHERENT. DR HE ORDERED ZYPREXA AND ATIVAN IM. ZYPREXA 5MG AND ATIVAN 1MG IM GIVEN.
[2018-01-13 16:00] VITALS: BP 114/56
--- NOTE | 2018-01-13 19:30 | NUR ---
GPS RN NOTE, RECEIVED PATIENT AWAKE AND IN BED, NO S/S OR COMPLAINTS OF PAIN AT THIS TIME. PATIENT DISPLAYING NO S/S OF APPARENT DISTRESS AT THIS TIME. PATIENT BREATHING IS UNLABORED WITH EQUAL RISE AND FALL OF THE CHEST. PATIENT ALERT AND ORIENTED X 3 WITH A SPO2 95%. PATIENT HAS A ONE TO ONE SITTER FOR BEING ON O2. PATIENT IS MED COMPLIANT, DISORGANIZED, COOPERATIVE, GUARDED, NEEDS REORIENTATION. PATIENT DENIES SUICIDE IDEATIONS AND HOMICIDAL IDEATIONS AT THIS TIME. PATIENT ASSISTED WITH TURNING AND REPOSITIONING Q2HR AND PRN FOR COMFORT AND CIRCULATION. PATIENT HAS NO NEEDS AT THIS TIME. PATIENT EDUCATED ON THE USE OF THE CALL SALINAS. PATIENT BED SIDE RAILS UP X2 FOR SAFETY, BED IS LOCKED AND LOW WILL CONTINUE TO MONITOR AND MAINTAIN AND MAINTAIN SAFETY.
[2018-01-13 21:29] VITALS: BP_SYST 118; BP_SYST 139; BP_DIAS 64; BP_DIAS 78
[2018-01-13] MEDS: POLYETHYLENE GLYCOL 3350 17 GM POWD.PACK PO SCH (21:43)
--- NOTE | 2018-01-13 21:43 | NUR ---
GPS RN NOTE, PATIENT REFUSED TO TAKE MACROBID 100 MG PO Q12HR AND MIRALAX 17 GM PO HS. OFFERED AFOREMENTIONED MEDICATION THREE TIMES AND STILL PATIENT REFUSED STATING, " I GAVE A SHOT TODAY I DON'T NEED ANYMORE MEDICATION ". EDUCATED THIS PATIENT ON THE RISKS AND BENEFITS OF TAKING AND REFUSING MIRALAX AND MACROBID. WILL CONTINUE TO MONITOR THIS PATIENT.
--- NOTE | 2018-01-13 22:31 | NUR ---
GPS RN NOTE, PERFORMED ACCU CHECK ON PATIENT WITH A BLOOD SUGAR RESULT OF 198. PATIENT OFFERED 3 UNITS OF INSULIN PER SLIDING SCALE BUT PATIENT REFUSED. OFFERED INSULIN THREE TIMES AND STILL PATIENT REFUSED. EDUCATED THIS PATIENT ON THE RISKS AND BENIFITS OF TAKING AND REFUSING INSULIN. WILL CONTINUE TO MONITOR THIS PATIENT.
[2018-01-14] MEDS: BLOOD SUGAR DIAGNOSTIC 1 EACH STRIP IN SCH ×4 (07:43→21:45)
[2018-01-14] MEDS: INSULIN REGULAR, HUMAN 100 UNIT/ML 3 ML VIAL SQ PRN (07:44)
[2018-01-14] MEDS: GLUCERNA SHAKE 237 ML CAN PO SCH ×3 (07:45→17:00)
[2018-01-14 08:00] VITALS: BP 128/66
[2018-01-14] MEDS: NITROFURANTOIN/NITROFURAN MAC 100 MG CAPSULE PO SCH ×2 (09:00→21:33)
[2018-01-14] MEDS: DOCUSATE SODIUM 100 MG CAPSULE PO SCH ×2 (09:00→17:00)
[2018-01-14] MEDS: AMLODIPINE BESYLATE 5 MG TABLET PO SCH (09:00)
[2018-01-14] MEDS: INSULIN GLARGINE, 100 UNIT/ML CARTRIDGE SQ SCH (09:00)
[2018-01-14] MEDS: ARIPIPRAZOLE 2 MG TABLET PO SCH ×2 (09:00→17:00)
[2018-01-14] MEDS: MULTIVITAMINS,THERAGRAN 1 UDTAB TABLET PO SCH (09:00)
[2018-01-14] MEDS: ENOXAPARIN SODIUM 30 MG/0.3 ML DISP.SYRIN SQ SCH (09:49)
[2018-01-14] MEDS: Z GUARD REMEDY 2 OZ OINT TP SCH ×2 (09:51→21:35)
[2018-01-14] MEDS: HYDROGEL DRESSING 90 GM TUBE TP SCH (09:51)
--- NOTE | 2018-01-14 09:52 | NUR ---
GPS RN NOTES PT REFUSES TO TAKE MORNING MEDICATIONS: ABILIFY, MACROBID, AMLODIPINE, THERA VITAMIN, STOOL SOFTENER AND LANTUS. PER PT, "I ONLY TAKE THE FAST ACTING INSULIN." NO S/SX OF HYPO/HYPERGLYCEMIA NOTED. WILL CONTINUE TO MONITOR THROUGHOUT SHIFT.
--- NOTE | 2018-01-14 11:31 | NUR ---
GPS/RN-NOTES NOTED PATIENT SCREAMING AND YELLING CALLING OFFICERS. REDIRECTED AND REORIENTED PATIENT. PATIENT ALSO REFUSED ELVIRA CARE AND REPOSITIONING AT THIS TIME. DESPITE EXPLANATION RISK AND BENEFITS. PATIENT GETS ANGRY AND STATED" I DON'T WANT TO BE CHANGE OR TO BE TOUCH AT THIS TIME ".OFFERED ATIVAN FOR ANXIETY BUT PATIENT REFUSED. WILL CONT. ON 1:1 MONITORING FOR SAFETY AND BEHAVIOR.
--- NOTE | 2018-01-14 11:40 | NUR ---
GPS/RN-NOTES NOTED PATIENT WITH CONTINUOS SCREAMING AND YELLING,AGITATED /RESTLESS,IRRITABLE AND REFUSING CARE. DR. HE IN THE UNIT AND AWARE OF PATIENT BEHAVIOR WITH ORDERS. ALSO DR. HE MADE AWARE OF PATIENT REFUSAL OF SOME OF HER MEDICATIONS AT 0900AM.
[2018-01-14] MEDS ORDERED: OLANZAPINE 10 MG VIAL IM ONE (12:00)
--- NOTE | 2018-01-14 12:21 | NUR ---
GPS/RN-NOTES SEEN BY DR. HE WITH NEW ORDER OF ZYPREXA 10MG IM X1. GIVEN AT LEFT BUTTOCK WITH 2 STAFF ASSIST. WELL TOLERATED.WILL CONT. 1:1 MONITORING FOR SAFETY AND BEHAVIOR.
--- NOTE | 2018-01-14 12:30 | NUR ---
GPS/RN-NOTES PATIENT FINALLY AGREED TO REPOSITION AND DIAPER CHANGE.
--- NOTE | 2018-01-14 13:30 | NUR ---
GPS/RN-NOTES NOTED PATIENT WITH EPISODE OF TURNING OFF HER OXYGEN TANK. REEDUCATE AND REORIENTED PATIENT THE IMPORTANCE OF HER OXYGEN TANK. PATIENT SCREAMS AND YELLS AT THE LIBRARY ACQUISITIONS TECHNICIAN. STATED" I CAN DO WHAT EVER I WANT".OXYGEN WAS TURN ON. WILL CONT. ON 1:1 MONITORING FOR SAFETY AND BEHAVIOR.
[2018-01-14 16:00] VITALS: BP 148/72
--- NOTE | 2018-01-14 18:26 | NUR ---
GPS/RN-NOTES PATIENT STRONGLY REFUSED ALL 1700 MEDICATIONS INCLUDING ACCU CHECK DESPITE EXPLANATION RISK AND BENEFITS. OFFERED X3 STILL REFUSED.
[2018-01-14 20:00] VITALS: BP 150/80
[2018-01-14] MEDS: POLYETHYLENE GLYCOL 3350 17 GM POWD.PACK PO SCH (21:36)
--- NOTE | 2018-01-14 21:36 | NUR ---
GPS RN NOTE, PATIENT REFUSED TO TAKE MIRALAX 17 GM PO HS. OFFERED AFOREMENTIONED MEDICATION THREE TIMES AND STILL PATIENT REFUSED STATING, " I DON'T WANT IT ". EDUCATED THIS PATIENT ON THE RISKS AND BENEFITS OF TAKING AND REFUSING MIRALAX. WILL CONTINUE TO MONITOR THIS PATIENT.
--- NOTE | 2018-01-14 21:45 | NUR ---
GPS RN NOTE, PERFORMED ACCU CHECK ON PATIENT WITH A BLOOD SUGAR OF 318. GAVE 8 UNITS OF REGULAR INSULIN PER SLIDING SCALE. WILL CONTINUE TO MONITOR THIS PATIENT.
[2018-01-14] MEDS: *INSULIN REGULAR(HUMULIN R)HUM 100 UNIT/ML VIAL SQ PRN (21:47)
--- NOTE | 2018-01-15 02:24 | NUR ---
GPS RN NOTE, PATIENT HAS A COMPLAINT OF LOWER BACK PAIN AT 6 OUT 10 ON THE PAIN SCALE AND IS REQUESTING NORCO AT THIS TIME. PATIENT VITAL SIGNS ARE STABLE. GAVE NORCO 5-325 1 TAB PO Q6HR PRN ORDERED. WILL REASSESS PAIN AND I WILL CONTINUE TO MONITOR THIS PATIENT.
[2018-01-15] MEDS: BLOOD SUGAR DIAGNOSTIC 1 EACH STRIP IN SCH ×4 (07:52→21:31)
[2018-01-15] MEDS: GLUCERNA SHAKE 237 ML CAN PO SCH ×2 (07:57→16:46)
[2018-01-15 08:00] VITALS: BP 135/65
[2018-01-15] MEDS: INSULIN REGULAR, HUMAN 100 UNIT/ML 3 ML VIAL SQ PRN ×3 (08:07→17:59)
[2018-01-15] MEDS: INSULIN GLARGINE, 100 UNIT/ML CARTRIDGE SQ SCH (09:00)
[2018-01-15] MEDS: MULTIVITAMINS,THERAGRAN 1 UDTAB TABLET PO SCH (09:31)
[2018-01-15] MEDS: DOCUSATE SODIUM 100 MG CAPSULE PO SCH ×2 (09:31→16:45)
[2018-01-15] MEDS: ARIPIPRAZOLE 2 MG TABLET PO SCH ×2 (09:31→16:45)
[2018-01-15] MEDS: AMLODIPINE BESYLATE 5 MG TABLET PO SCH (09:32)
[2018-01-15] MEDS: NITROFURANTOIN/NITROFURAN MAC 100 MG CAPSULE PO SCH ×2 (09:33→21:02)
[2018-01-15] MEDS: ENOXAPARIN SODIUM 30 MG/0.3 ML DISP.SYRIN SQ SCH (09:42)
[2018-01-15] MEDS: HYDROGEL DRESSING 90 GM TUBE TP SCH (09:45)
[2018-01-15] MEDS: Z GUARD REMEDY 2 OZ OINT TP SCH ×2 (09:45→21:03)
[2018-01-15] MEDS: NYSTATIN TOP POWDER 15 GM BOTTLE TP SCH ×2 (11:18→17:00)
[2018-01-15 16:00] VITALS: BP 119/65
--- NOTE | 2018-01-15 18:00 | NUR ---
BS IS 168, REFUSED FOR INSULIN COVERAGE. EXPLAINED IN THE IMPORTANCE AND OFFERED 3X AND PT. STILL REFUSING AND SAID " I DON'T NEED IT RIGHT NOW".
[2018-01-15 20:00] VITALS: BP 146/76
[2018-01-15] MEDS: POLYETHYLENE GLYCOL 3350 17 GM POWD.PACK PO SCH (21:35)
[2018-01-15] MEDS: *INSULIN REGULAR(HUMULIN R)HUM 100 UNIT/ML VIAL SQ PRN (21:42)
[2018-01-15] MEDS: TEMAZEPAM 7.5 MG CAPSULE PO PRN (21:44)
[2018-01-16] MEDS: ALBUTEROL FS 2.5 MG/0.5 ML VIAL.NEB IH PRN ×2 (07:11→11:52)
[2018-01-16] MEDS: IPRATROPIUM NEB FS 0.5 MG/2.5 ML AMPUL.NEB IH PRN ×2 (07:11→11:52)
[2018-01-16 08:09] VITALS: BP_SYST 118; BP_DIAS 55; BP_DIAS 66
[2018-01-16] MEDS: BLOOD SUGAR DIAGNOSTIC 1 EACH STRIP IN SCH ×4 (08:36→21:01)
[2018-01-16] MEDS: AMLODIPINE BESYLATE 5 MG TABLET PO SCH (09:00)
[2018-01-16] MEDS: MULTIVITAMINS,THERAGRAN 1 UDTAB TABLET PO SCH (09:00)
[2018-01-16] MEDS: DOCUSATE SODIUM 100 MG CAPSULE PO SCH ×2 (09:00→17:00)
[2018-01-16] MEDS: INSULIN GLARGINE, 100 UNIT/ML CARTRIDGE SQ SCH (09:00)
[2018-01-16] MEDS: ARIPIPRAZOLE 2 MG TABLET PO SCH ×2 (09:00→17:00)
[2018-01-16] MEDS: NITROFURANTOIN/NITROFURAN MAC 100 MG CAPSULE PO SCH ×2 (09:00→21:00)
[2018-01-16] MEDS: INSULIN REGULAR, HUMAN 100 UNIT/ML 3 ML VIAL SQ PRN ×2 (09:21→12:15)
[2018-01-16] MEDS: Z GUARD REMEDY 2 OZ OINT TP SCH ×2 (09:37→21:02)
[2018-01-16] MEDS: HYDROGEL DRESSING 90 GM TUBE TP SCH (09:37)
[2018-01-16] MEDS: NYSTATIN TOP POWDER 15 GM BOTTLE TP SCH ×2 (09:38→17:13)
[2018-01-16] MEDS: GLUCERNA SHAKE 237 ML CAN PO SCH ×2 (09:42→17:12)
[2018-01-16] MEDS ORDERED: OLANZAPINE 10 MG VIAL IM ONE (11:30)
--- NOTE | 2018-01-16 13:04 | NUR ---
GPS/RN-NOTES NOTED PATIENT WITH 88 % TO 89% O2 SATURATION,SHE'S ON O2 AT 3L/MINS VIA N/C. PER RESPIRATORY STAFF, PATIENT IS STRONGLY REFUSED BREATHING TREATMENT DESPITE EXPLANATIONS OF RISK AND BENEFITS.
[2018-01-16] MEDS: ENOXAPARIN SODIUM 30 MG/0.3 ML DISP.SYRIN SQ SCH (13:28)
[2018-01-16 15:43] VITALS: BP 119/65
--- NOTE | 2018-01-16 18:11 | NUR ---
GPS/RN-NOTES PATIENT REFUSED ABILIFY AND COLACE ,ALSO REFUSED 2 UNITS OF R INSULIN COVERAGE. EXPLAINED RISK AND BENEFITS BUT GETS AMAN AND ARGUMENTATIVE WITH THE HEALTH EDUCATION SPECIALIST. OFFERED X3 .CHARGE NURSE AWARE. NICOLE MUSTAFA IN THE UNIT AT THIS TIME AND MADE AWARE OF PATIENT REFUSAL.
[2018-01-16 20:00] VITALS: BP 130/61
[2018-01-16] MEDS: POLYETHYLENE GLYCOL 3350 17 GM POWD.PACK PO SCH (21:01)
--- NOTE | 2018-01-16 22:00 | NUR ---
GPS RN NOTE: PATIENT REFUSED MIRALAX AND MACROBID, EXPLAINED THE RISK AND BENEFITS, PATIENTS STILL REFUSED X 3 ATTEMPTS. WILL CONTINUE TO MONITOR [id number] FOR SAFETY
[2018-01-16] MEDS: *INSULIN REGULAR(HUMULIN R)HUM 100 UNIT/ML VIAL SQ PRN (22:04)
--- NOTE | 2018-01-17 01:38 | NUR ---
GPS RN NOTE: PATIENT WAS REQUESTING RT, O2 SAT 89 VIA 2L/MIN, WHEN RT CAME,PATIENT REFUSED BREATHING TX. EXPLAINED THE RISK AND BENEFITS, PATIENT STILL REFUSED. O2 SAT 93-94. WILL CONTINUE TO MONITOR [id number] FOR SAFETY
[2018-01-17] MEDS: ALBUTEROL FS 2.5 MG/0.5 ML VIAL.NEB IH PRN (06:27)
[2018-01-17] MEDS: IPRATROPIUM NEB FS 0.5 MG/2.5 ML AMPUL.NEB IH PRN (06:27)
[2018-01-17 07:10] LABS: BASOPHILS % (AUTO) 0.2 % (0.0-2.0); EOSINOPHILS % (AUTO) 3.4 % (0.0-6.0); HEMATOCRIT 36 % (33-45); HEMOGLOBIN 11.9 g/dL (11.5-14.8); LYMPHOCYTES # (AUTO) 0.8 /CMM (0.8-4.8); MEAN CORPUSCULAR HGB CONC 33 g/dl (31.0-36.0); MEAN CORPUSCULAR VOLUME 96 fL (82-100); MONOCYTES # (AUTO) 0.7 /CMM (0.1-1.30); MONOCYTES % (AUTO) 11.2 % (2.0-12.0); NEUTROPHILS # (AUTO) 4.3 /CMM (1.8-8.9); NEUTROPHILS % (AUTO) 71.2 % (43.0-81.0); PLATELET COUNT (AUTO) 166 /CMM (150-450); RDW COEFFICIENT OF VARIATION 13.7 (11.5-15.0); RED BLOOD CELL COUNT(AUTO) 3.74 MIL/uL (4.0-5.2)
[2018-01-17 07:28] LABS: CALCIUM, SERUM 8.8 mg/dL (8.5-10.1); CHLORIDE 96 mmol/L (98-107); CREATININE 0.5 mg/dL (0.6-1.3); GLUCOSE 233 mg/dL (74-106); POTASSIUM 4.7 mmol/L (3.5-5.1); SODIUM SERUM 136 mmol/L (136-145); UREA NITROGEN, BLOOD 14 mg/dL (7-18)
[2018-01-17] MEDS: BLOOD SUGAR DIAGNOSTIC 1 EACH STRIP IN SCH ×4 (07:30→22:00)
[2018-01-17] MEDS: PANTOPRAZOLE 40 MG TABLET.DR PO SCH (07:30)
[2018-01-17 07:42] LABS: CARBON DIOXIDE 44 mmol/L (21-32)
--- NOTE | 2018-01-17 07:45 | NUR ---
[id number]: NOTIFIED DR. MUSTAFA ABOUT PT CO2= 44. DR. MUSTAFA WILL BE STOPPING BY TO ASSESS PT.
[2018-01-17 08:00] VITALS: BP 148/75
[2018-01-17] MEDS: GLUCERNA SHAKE 237 ML CAN PO SCH ×2 (08:00→18:24)
[2018-01-17] MEDS: AMLODIPINE BESYLATE 5 MG TABLET PO SCH (09:00)
[2018-01-17] MEDS: ARIPIPRAZOLE 2 MG TABLET PO SCH ×2 (09:00→17:27)
[2018-01-17] MEDS: INSULIN GLARGINE, 100 UNIT/ML CARTRIDGE SQ SCH (09:00)
[2018-01-17] MEDS: NITROFURANTOIN/NITROFURAN MAC 100 MG CAPSULE PO SCH ×2 (09:00→21:11)
[2018-01-17] MEDS: MULTIVITAMINS,THERAGRAN 1 UDTAB TABLET PO SCH (09:00)
[2018-01-17] MEDS: ENOXAPARIN SODIUM 30 MG/0.3 ML DISP.SYRIN SQ SCH (09:00)
[2018-01-17] MEDS: DOCUSATE SODIUM 100 MG CAPSULE PO SCH ×2 (09:00→17:27)
[2018-01-17] MEDS: NYSTATIN TOP POWDER 15 GM BOTTLE TP SCH ×2 (09:16→17:27)
[2018-01-17] MEDS: INSULIN REGULAR, HUMAN 100 UNIT/ML 3 ML VIAL SQ PRN ×2 (09:16→17:34)
[2018-01-17] MEDS: HYDROGEL DRESSING 90 GM TUBE TP SCH (09:16)
--- NOTE | 2018-01-17 09:16 | NUR ---
PLB-NA-KLOCA: BLOOD SUGAR IS 208 MG/DL AND GAVE 8 UNITS OF REGULAR INSULIN
[2018-01-17] MEDS: Z GUARD REMEDY 2 OZ OINT TP SCH ×2 (09:17→21:11)
--- NOTE | 2018-01-17 10:00 | NUR ---
PHJ-CJ-[id number]: NOTIFIED DR. MUSTAFA ABOUT LAB RESULTS:RBC= 3.74, LYMPH %= 14.0, CHLORIDE= 96, ANION GAP= 1, CREATININE= 0.5. DR. MUSTAFA ORDERED FLEET ENEMA PRN EVERY OTHER DAY DUE TO DISTENDED ABDOMEN.
[2018-01-17] MEDS ORDERED: NA PHOS,M-B/NA PHOS,DI-BA 1 EA ENEMA RC PRN ×2 (11:00→11:30)
--- NOTE | 2018-01-17 11:30 | NUR ---
AKD-[id number]-[id number]: PT REFUSED BLOOD SUGAR.
[2018-01-17 16:00] VITALS: BP 145/63
[2018-01-17 21:47] VITALS: BP 155/80
[2018-01-17] MEDS: POLYETHYLENE GLYCOL 3350 17 GM POWD.PACK PO SCH (22:00)
[2018-01-17] MEDS: *INSULIN REGULAR(HUMULIN R)HUM 100 UNIT/ML VIAL SQ PRN (22:06)
[2018-01-18] MEDS: BLOOD SUGAR DIAGNOSTIC 1 EACH STRIP IN SCH ×5 (07:30→21:59)
[2018-01-18] MEDS: PANTOPRAZOLE 40 MG TABLET.DR PO SCH (07:30)
--- NOTE | 2018-01-18 07:30 | NUR ---
IXK-TA-[id number]: PT REFUSED BLOOD SUGAR CHECK. EXPLAINED THE RISK AND BENEFITS ABOUT BEING COMPLAINT WITH MEDICATION. PT STATED, "YOUR TRYING TO POISON ME." PT IS ANXIOUS, RESTLESS, PARANOID.
[2018-01-18] MEDS: GLUCERNA SHAKE 237 ML CAN PO SCH ×2 (08:00→16:34)
[2018-01-18 08:14] VITALS: BP 140/62
[2018-01-18] MEDS: NYSTATIN TOP POWDER 15 GM BOTTLE TP SCH ×2 (09:00→16:34)
[2018-01-18] MEDS: ENOXAPARIN SODIUM 30 MG/0.3 ML DISP.SYRIN SQ SCH (09:00)
[2018-01-18] MEDS: INSULIN GLARGINE, 100 UNIT/ML CARTRIDGE SQ SCH (09:00)
[2018-01-18] MEDS: AMLODIPINE BESYLATE 5 MG TABLET PO SCH (09:00)
[2018-01-18] MEDS: NITROFURANTOIN/NITROFURAN MAC 100 MG CAPSULE PO SCH ×2 (09:00→21:51)
[2018-01-18] MEDS: DOCUSATE SODIUM 100 MG CAPSULE PO SCH ×2 (09:00→16:34)
[2018-01-18] MEDS: ARIPIPRAZOLE 2 MG TABLET PO SCH ×2 (09:00→16:34)
[2018-01-18] MEDS: HYDROGEL DRESSING 90 GM TUBE TP SCH (09:00)
[2018-01-18] MEDS: MULTIVITAMINS,THERAGRAN 1 UDTAB TABLET PO SCH (09:00)
[2018-01-18] MEDS: Z GUARD REMEDY 2 OZ OINT TP SCH ×2 (09:00→21:51)
--- NOTE | 2018-01-18 09:00 | NUR ---
EQI-[id number]-[id number]: PT REFUSED ALL MORNING MEDICATIONS AND DR. HE MADE AWARE.
--- NOTE | 2018-01-18 11:30 | NUR ---
YBG-IS-OCGLM: PT REFUSED BLOOD SUGAR CHECK. EXPLAINED THE RISK AND BENEFITS ABOUT BEING COMPLAINT WITH MEDICATION. PT STATED, "YOUR TRYING TO POISON ME." PT IS ANXIOUS, RESTLESS, PARANOID
--- NOTE | 2018-01-18 13:00 | NUR ---
RQB-AM-VFLVP: PT REFUSED 1300 MEDICATIONS.
[2018-01-18 16:11] VITALS: BP 149/74
[2018-01-18 19:57] VITALS: BP 132/66
[2018-01-18] MEDS: POLYETHYLENE GLYCOL 3350 17 GM POWD.PACK PO SCH (21:51)
[2018-01-18] MEDS: *INSULIN REGULAR(HUMULIN R)HUM 100 UNIT/ML VIAL SQ PRN (22:03)
[2018-01-18] MEDS: TEMAZEPAM 7.5 MG CAPSULE PO PRN (22:57)
[2018-01-19] MEDS: BLOOD SUGAR DIAGNOSTIC 1 EACH STRIP IN SCH ×2 (07:30→12:21)
[2018-01-19] MEDS: PANTOPRAZOLE 40 MG TABLET.DR PO SCH (07:38)
[2018-01-19 08:00] VITALS: BP 149/73
[2018-01-19] MEDS: GLUCERNA SHAKE 237 ML CAN PO SCH ×2 (08:00→16:17)
[2018-01-19] MEDS: MULTIVITAMINS,THERAGRAN 1 UDTAB TABLET PO SCH (08:53)
[2018-01-19] MEDS: DOCUSATE SODIUM 100 MG CAPSULE PO SCH ×2 (08:53→16:17)
[2018-01-19] MEDS: ARIPIPRAZOLE 2 MG TABLET PO SCH ×2 (08:53→15:49)
[2018-01-19] MEDS: INSULIN GLARGINE, 100 UNIT/ML CARTRIDGE SQ SCH (08:53)
[2018-01-19] MEDS: AMLODIPINE BESYLATE 5 MG TABLET PO SCH (08:53)
[2018-01-19] MEDS: NITROFURANTOIN/NITROFURAN MAC 100 MG CAPSULE PO SCH (08:53)
[2018-01-19] MEDS: HYDROGEL DRESSING 90 GM TUBE TP SCH (08:54)
[2018-01-19] MEDS: ENOXAPARIN SODIUM 30 MG/0.3 ML DISP.SYRIN SQ SCH (08:54)
[2018-01-19] MEDS: Z GUARD REMEDY 2 OZ OINT TP SCH (08:54)
[2018-01-19] MEDS: NYSTATIN TOP POWDER 15 GM BOTTLE TP SCH (08:54)
--- NOTE | 2018-01-19 10:05 | NUR ---
WOUND CARE FOLLOW UP/CONSULT: PT SEEN FOR SACRAL WOUND AND RASH TO BUTTOCKS AND PERINEUM. PT WAS NOTED TO HAVE SACRAL WOUND, PRESENT ON ADMISSION STAGE 2 ULCER WITH DEEP TISSUE INJURY TO PERIWOUND AREA. WOUND BED CHANGES NOTED AND WOUND IS NOW FULLY EVOLVED STAGE 3 ULCER, SEEN BY SURGICAL TEAM. RECOMMENDATIONS MADE FOR WOUND CARE AND SKIN PROTECTION. DISCUSSED WITH NURSING STAFF AND Gustavo KNOTT, SURGICAL PENSION CONSULTANT. WILL SEE PRN. PT ON FIRST STEP MATTRESS. PT HAS BEEN UNCOOPERATIVE PER NURSING STAFF. Addendum: 01/19/18 at 1011 by AIDE ROSAS WNDNU Amended: Links added.
[2018-01-19] MEDS: CLOTRIMAZOLE/BETAMETASONE DIPROPIONATE 15 GM TUBE TP SCH ×2 (10:30→16:16)
--- NOTE | 2018-01-19 10:51 | NUR ---
SW spoke with [facility] instructional coordinator at [facility] who stated that pt was not accepted and there were no beds available.
--- NOTE | 2018-01-19 11:05 | NUR ---
DEENA faxed referral packet to Corwin HainesHand Candy Cutter at [facility] Address: [address] [place] [address] .
--- NOTE | 2018-01-19 11:06 | NUR ---
DISCHARGE NOTE: Pt being discharged at 4:00pm to [facility] trip #[id number] Address: [address] [place] [address] . DEENA attempted to contact Radha Kay; person to notify and next of kin at [phone] however, phone number was not valid. Pt was calm and cooperative and agreed to discharge plan. Pt will be under the medical care of Anode Rebuilder: Dr Grant Address: [address] [place] [address] and Psychiatrist: Dr. Nurys Quintero [address] [address] [phone] Addendum: 01/19/18 at 1124 by YORDY SHAFFER Pt denied suicidal/homicidal ideations and denied visual/auditory hallucinations. The multidisciplinary exitcare form was done, printed, signed, and given to the patient. Addendum: 01/19/18 at 1449 by YORDY SHAFFER Pt is refusing discharge stating "I will not go to a [place] [facility] I want to stay in the hospital." Pt is uncooperative.
[2018-01-19] MEDS: INSULIN REGULAR, HUMAN 100 UNIT/ML 3 ML VIAL SQ PRN (12:21)
--- NOTE | 2018-01-19 14:49 | NUR ---
DEENA was contacted by pts son Jason [phone]. SW informed pts son that pt was refusing discharge and refusing to take medications. Pts son asked SW if pt could be medicated against her will and SW informed him that pt could not. SW informed pts son that pt would be discharged and could not stay at the hospital another day. Pts son agreed and understood.
[2018-01-19] MEDS: LORAZEPAM 0.5 MG TABLET PO PRN (15:49)
[2018-01-19 16:00] VITALS: BP 123/58
--- NOTE | 2018-01-19 16:26 | NUR ---
PATIENT LEFT UNIT AT 1625 WITH AMBULANCE COMPANY. PATIENT IS ALERT AND ORIENTED X1/2. PATIENT DENIES SI/HI DURING DISCHARGE. DENIES COMMAND HALLUCINATIONS. YING GAVE DISCHARGE ORDER, DISCONTINUE HOLD, AND PRESCRIPTION. MANAGER POOL MADE AWARE AND AGREES WITH DISCHARGE. PATIENT REFUSED TO SIGN EXIT CARE, REFUSED SKIN ASSESSMENT. PATIENT LEFT WITH BELONGINGS.
== END 2018-01-19 16:36 | DRG 885 ==
LOC: GPS 15:00
PROVIDERS: ADMIT Psychiatry & Neurology Psychiatry; ATTEND Psychiatry & Neurology Psychiatry
DX: F31.60 Bipolar disorder, current episode mixed, unspecified (principal); J96.11 Chronic respiratory failure with hypoxia; I11.0 Hypertensive heart disease with heart failure; B95.2 Enterococcus as the cause of diseases classified elsewhere; E11.65 Type 2 diabetes mellitus with hyperglycemia; J96.12 Chronic respiratory failure with hypercapnia; I27.20 Pulmonary hypertension, unspecified; N39.0 Urinary tract infection, site not specified; F23 Brief psychotic disorder; I50.9 Heart failure, unspecified; Z99.81 Dependence on supplemental oxygen; J44.9 Chronic obstructive pulmonary disease, unspecified; F41.9 Anxiety disorder, unspecified; Z91.19 Patient's noncompliance with other medical treatment and regimen; Z91.14 Patient's other noncompliance with medication regimen; Z79.899 Other long term (current) drug therapy; F29 Unspecified psychosis not due to a substance or known physiological condition; K59.00 Constipation, unspecified; F03.90 Unspecified dementia, unspecified severity, without behavioral disturbance, psychotic disturbance, mood disturbance, and anxiety; I25.10 Atherosclerotic heart disease of native coronary artery without angina pectoris; L98.9 Disorder of the skin and subcutaneous tissue, unspecified; S31.000A Unspecified open wound of lower back and pelvis without penetration into retroperitoneum, initial encounter; X58.XXXA Exposure to other specified factors, initial encounter; Y92.89 Other specified places as the place of occurrence of the external cause
CPT/HCPCS: 36415; 74018; 80048-TC; 80053-TC; 80061-TC; 81000-TC; 82962-TC; 84484-TC; 85025-TC; 87081-TC; 87086-TC; 87186-TC; 93307-TC; 97110-TC; 97116-TC; 97530-TC; A4606; A6248; A6402; J1650; J1815; J2060; J3490